=== PATIENT | male | born 2000 | race Caucasian/White ===

== ENCOUNTER 2020-03-10 17:25 | Emergency (ER) | payer SELFPAY ==
[~2020-03-10] VITALS: Ht 178 cm; Wt 47.8 kg
[~2020-03-10 17:25] MED LIST: HYDR-1231 PO; HYOS0.1216 PO; ONDA-42 SL
[2020-03-10] MEDS ORDERED: IBUPROFEN 800 MG (MOTRIN) TAB PO ONE (17:45)
[2020-03-10] MEDS ORDERED: ACETAMINOPHEN 500 MG TAB (TYLENOL) PO ONE (17:45)
[2020-03-10 18:10] LABS: BASOPHILS % (AUTO) 0 % (0-10); EOSINOPHILS # (AUTO) 0.2 10^3/uL (0.0-0.3); EOSINOPHILS % (AUTO) 2 % (0-10); HEMATOCRIT 35 % (40-54); HEMOGLOBIN 11.3 G/DL (13.3-17.7); LYMPHOCYTES # (AUTO) 0.5 X 10^3 (1.0-4.0); LYMPHOCYTES % (AUTO) 5 % (12-44); MEAN CORPUSCULAR HEMOGLOBIN 25 PG (25-34); MEAN CORPUSCULAR HGB CONC 32 G/DL (32-36); MEAN CORPUSCULAR VOLUME 79 FL (80-99); MEAN PLATELET VOLUME 11.2 FL (7.4-10.4); MONOCYTES # (AUTO) 0.5 X 10^3 (0.0-1.0); MONOCYTES % (AUTO) 5 % (0-12); NEUTROPHILS % (AUTO) 88 % (42-75); PLATELET COUNT 227 10^3/uL (130-400); RED CELL DISTRIBUTION WIDTH 14.4 % (10.0-14.5); WHITE BLOOD COUNT 10.3 10^3/uL (4.3-11.0)
--- NOTE | 2020-03-10 18:34 | ED General ---
General Chief Complaint: Fever-Adult/Adol Stated Complaint: HEADACHE,COUGH,FEVER 102 Nursing Triage Note: PATIENT HAVING 3 DAYS OF HEADACHE WITH FEVER STARTING TODAY Nursing Sepsis Screen: No Definite Risk Source of Information: Patient Exam Limitations: No Limitations History of Present Illness Date Seen by Provider: Mar 10, 2020 Time Seen by Provider: 18:31 Initial Comments to er with c/o cough headache sore throat x3 days. Fever up to 103 today. Timing/Duration: 2-3 Days Severity: Moderate Associated Systoms: Cough, Fever/Chills Allergies and Home Medications Allergies Coded Allergies: No Known Drug Allergies (Unverified , 09/30/14) Home Medications Hyoscyamine Sulfate 0.125 Mg Tab, 1-2 EACH PO Q4HR PRN PRN for ABDOMINAL PAIN Prescribed by: NADIRA STEWARD on 09/30/14 1120 Ondansetron Hcl 4 Mg Tab, 4 MG SL Q4H FOR NAUSEA AND VOMITING Prescribed by: NADIRA STEWADR on 09/30/14 1120 Patient Home Medication List Home Medication List Reviewed: Yes Review of Systems Review of Systems Constitutional: see HPI, chills, fever EENTM: see HPI Respiratory: see HPI, cough Cardiovascular: no symptoms reported Genitourinary: no symptoms reported Musculoskeletal: no symptoms reported Skin: no symptoms reported Psychiatric/Neurological: No Symptoms Reported Hematologic/Lymphatic: No Symptoms Reported Immunological/Allergic: no symptoms reported Past Rhwvnfo-Nlwrbm-Ankfzw Hx Patient Social History Alcohol Use: Denies Use Recreational Drug Use: No Smoking Status: Never a Smoker 2nd Hand Smoke Exposure: No Recent Foreign Travel: No Contact w/Someone Who Travel: No Recent Infectious Disease Expo: No Immunizations Up To Date Tetanus Booster (TDap): Less than 5yrs PED Vaccines UTD: Yes Past Medical History Surgeries: Yes Orthopedic Respiratory: No Cardiac: No Neurological: No Reproductive Disorders: No Sexually Transmitted Disease: No HIV/AIDS: No Gastrointestinal: No Musculoskeletal: No Endocrine: No Cancer: No Psychosocial: No Integumentary: No Blood Disorders: No Adverse Reaction/Blood Tranf: No Physical Exam Vital Signs Vital Signs - First Documented 03/10/20 17:30 Temp 38.3 Pulse 96 Resp 20 B/P (MAP) 104/62 (76) Pulse Ox 94 O2 Delivery Room Air Capillary Refill : Less Than 3 Seconds Height, Weight, BMI Height: 5'4" Weight: 102lbs. oz. 46.952778al; 15.00 BMI Method:Stated General Appearance: No Apparent Distress, WD/WN Eyes: Bilateral Eye Normal Inspection, Bilateral Eye PERRL, Bilateral Eye EOMI Neck: Full Range of Motion, Normal Inspection Respiratory: No Accessory Muscle Use, No Respiratory Distress Cardiovascular: Regular Rate, Rhythm, Normal Peripheral Pulses Gastrointestinal: Normal Bowel Sounds, Non Tender, Soft Extremity: Normal Capillary Refill, Normal Inspection Neurologic/Psychiatric: Alert, Oriented x3 Skin: Normal Color, Warm/Dry Progress/Results/Core Measures Suspected Sepsis Recent Fever Within 48 Hours: No Infection Criteria Present: None New/Unexplained Altered Menta: No Sepsis Screen: No Definite Risk SIRS Temperature: Pulse: 96 Respiratory Rate: 20 Laboratory Tests 03/10/20 17:40: White Blood Count 10.3 Blood Pressure 104 /62 Mean: 76 Laboratory Tests 03/10/20 17:40: Platelet Count 227 Results/Orders Lab Results Laboratory Tests Test 03/10/20 17:40 03/10/20 18:20 Range/Units White Blood Count 10.3 4.3-11.0 10^3/uL Red Blood Count 4.46 4.35-5.85 10^6/uL Hemoglobin 11.3 L 13.3-17.7 G/DL Hematocrit 35 L 40-54 % Mean Corpuscular Volume 79 L 80-99 FL Mean Corpuscular Hemoglobin 25 25-34 PG Mean Corpuscular Hemoglobin Concent 32 32-36 G/DL Red Cell Distribution Width 14.4 10.0-14.5 % Platelet Count 227 130-400 10^3/uL Mean Platelet Volume 11.2 H 7.4-10.4 FL Neutrophils (%) (Auto) 88 H 42-75 % Lymphocytes (%) (Auto) 5 L 12-44 % Monocytes (%) (Auto) 5 0-12 % Eosinophils (%) (Auto) 2 0-10 % Basophils (%) (Auto) 0 0-10 % Neutrophils # (Auto) 9.0 H 1.8-7.8 X 10^3 Lymphocytes # (Auto) 0.5 L 1.0-4.0 X 10^3 Monocytes # (Auto) 0.5 0.0-1.0 X 10^3 Eosinophils # (Auto) 0.2 0.0-0.3 10^3/uL Basophils # (Auto) 0.0 0.0-0.1 10^3/uL C-Reactive Protein High Sensitivity 0.12 0.00-0.50 MG/DL My Orders Orders - VALERIE DIAZ APRN Cbc With Automated Diff (03/10/20 17:43) Coronavirus Sars-Cov-2 So 2018 (03/10/20 17:43) Chest 1 View, Ap/Pa Only (03/10/20 17:43) Acetaminophen Tablet (Tylenol Tablet) (03/10/20 17:45) Ibuprofen Tablet (Motrin Tablet) (03/10/20 17:45) Hs C Reactive Protein (03/10/20 17:43) Manual Differential (03/10/20 17:40) Diphenhydramine Tablet (Benadryl Tablet) (03/10/20 19:00) Rx-Acetaminophen/Codeine (Rx-Tylenol #3) (03/10/20 19:00) Medications Given in ED Current Medications Medications Dose Ordered Sig/Jovan Route Start Time Stop Time Status Last Admin Dose Admin Acetaminophen 1,000 mg ONCE ONCE PO 03/10/20 17:45 03/10/20 17:46 DC 03/10/20 17:55 1,000 MG Vital Signs/I&O 03/10/20 17:30 Temp 38.3 Pulse 96 Resp 20 B/P (MAP) 104/62 (76) Pulse Ox 94 O2 Delivery Room Air Capillary Refill : Less Than 3 Seconds Blood Pressure Mean: 76 Departure Impression Primary Impression: Viral syndrome Additional Impression: Person under investigation for COVID-19 Disposition: 01 HOME, SELF-CARE Condition: Stable Departure-Patient Inst. Decision time for Depature: 18:32 Referrals: JERROD LÓPEZ MD (PCP/Family) Primary Care Physician Patient Instructions: Viral Syndrome (DC), Coronavirus Disease 2019 (COVID-19) (DC) Add. Discharge Instructions: 1. You are not allowed to work until you are 72 hours symptom free AND have a negative COVID test. If the covid test is positive you may return to work as directed by [facility] who will be in contact with you. Go home and quarantine away from family and friends until this covid swab is resulted. All discharge instructions reviewed with patient and/or family. Voiced understanding. Work/School Note: Work Release Form Date Seen in the Emergency Department: Mar 10, 2020 Return to Work: Mar 10, 2020 Restrictions: Need Release from Doctor VALERIE DIAZ APRN Mar 10, 2020 18:34
--- NOTE | 2020-03-10 18:37 | Diagnostic Imaging Report ---
INDICATION: Cough, fever and headache. COMPARISON: 10/11/2008. EXAMINATION: Single view of the chest was obtained. FINDINGS: Clear lungs, bilaterally. The heart is normal. There is no pneumothorax. The osseous structures are normal. IMPRESSION: Negative chest. Dictated by: Dictated on workstation # [id number]
[2020-03-10] MEDS ORDERED: diphenhydrAMINE 25 MG TAB (BENADRYL) PO ONE (19:00)
[2020-03-10] MEDS ORDERED: RX-ACETAMINOPHEN/CODEINE TAB PPK #4 PO SCH (19:00)
[2020-03-10 19:01] VITALS: BP 104/62
[2020-03-10 19:02] LABS: LYMPHOCYTES % (MANUAL) 5 %; MONOCYTES % (MANUAL) 5 %; NEUTROPHILS % (MANUAL) 90 %; RBC MORPH NORMAL
== END 2020-03-10 19:00 | disposition home or self-care (01) ==
LOC: EDUNIT# 17:25 → ER 17:26
DX: B34.9 Viral infection, unspecified (principal); Z20.828 Contact with and (suspected) exposure to other viral communicable diseases
CPT/HCPCS: 71045; 85007; 85027; 86141; 99282; U0002; 36415; 87635

== ENCOUNTER 2020-11-05 20:23 | Emergency (ER) | payer SELFPAY ==
[~2020-11-05] VITALS: Ht 177.8 cm; Wt 45.3 kg
[2020-11-05] MEDS ORDERED: RX-HYDROCODONE/APAP 5/325 MG #4 TAB PK PO PRN (21:00)
[2020-11-05] MEDS ORDERED: CEPHALEXIN 250 MG (KEFLEX) CAP PO ONE (21:00)
[2020-11-05] MEDS ORDERED: CEPH500T PO (21:06)
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
[2020-11-05 21:25] VITALS: BP 105/74
== END 2020-11-05 21:30 | disposition home or self-care (01) ==
LOC: EDUNIT# 20:23 → ER 20:25
DX: S81.812A Laceration without foreign body, left lower leg, initial encounter (principal); I10 Essential (primary) hypertension; V86.96XA Unspecified occupant of dirt bike or motor/cross bike injured in nontraffic accident, initial encounter
CPT/HCPCS: 73590

== ENCOUNTER 2020-11-14 17:33 | Emergency (ER) | payer SELFPAY ==
[~2020-11-14] VITALS: Ht 175.2 cm; Wt 47.6 kg
[~2020-11-14 17:33] MED LIST changes: +CEPH500T PO
[2020-11-14 18:10] VITALS: BP 109/68
== END 2020-11-14 18:14 | disposition home or self-care (01) ==
LOC: EDUNIT# 17:33 → ER 17:34
DX: Z48.02 Encounter for removal of sutures (principal)
CPT/HCPCS: 99283